=== PATIENT | male | born 1950 | race Caucasian/White ===

== ENCOUNTER 2018-03-20 18:38 | Emergency (ER) | payer MEDICARE ==
[~2018-03-20] VITALS: Ht 185.4 cm; Wt 96.1 kg
[2018-03-20 18:55] VITALS: BP 169/76
[2018-03-20] MEDS ORDERED: KETOROLAC 30 MG/1 ML IM ONE (19:30)
[2018-03-20] MEDS ORDERED: METHOCARBAMOL 750 MG TABLET PO ONE (19:30)
[2018-03-20] MEDS ORDERED: OXYcodone/APAP 5/325MG TABLET PO ONE (19:30)
[2018-03-20] MEDS ORDERED: KETOROLAC 30 MG/1 ML ONE (19:48)
[2018-03-20] MEDS ORDERED: OXYcodone/APAP 5/325MG TABLET ONE (19:48)
[2018-03-20] MEDS ORDERED: METHOCARBAMOL 750 MG TABLET ONE (19:48)
== END 2018-03-20 20:34 | disposition home or self-care (01) ==
LOC: ED 20:25
DX: S39.012A Strain of muscle, fascia and tendon of lower back, initial encounter (principal); X58.XXXA Exposure to other specified factors, initial encounter; Y93.89 Activity, other specified; Y92.89 Other specified places as the place of occurrence of the external cause; Y99.8 Other external cause status
CPT/HCPCS: 72110; 99284